=== PATIENT | female | born 1990 | race African-American/Black ===

== ENCOUNTER 2016-09-11 04:06 | Emergency (ER) | payer OTHER ==
[~2016-09-11] VITALS: Ht 170.2 cm; Wt 96.9 kg
[~2016-09-11 04:06] MED LIST: ALKA-SELTZER P1 EAC7 PO; AZITHROMYCIN500 M1; BENADRYL50 MG PO; BENTYL10 MG PO; CENTANY30 GM TP; CIPRODEX OTIC7.5 ML RIGHT EAR; CIPROFLOXACIN500 M1; CYMBALTA60 MG PO; ENDOCET 5-3251 EACH PO; FIORICET WI1 CAPSULE PO; FLUCONAZOLE100 MG; IBUPROFEN800 MG PO; MACROBID100 MG PO; METRONIDAZOLE500 MG; MOTRIN800 MG PO; MUCUS ER600 MG PO; NAPROSYN500 MG PO; NAPROXEN500 MG PO; NO HOME MEDS; NOHOMEMEDS; NORCO 5/3251 TABLET PO; PERCOCET 5/31 TABLET PO; PHENERGAN25 MG PR; ROBITUSSIN AC,T10 ML PO; SERTRALINE HCL50 MG PO; SUDAFED 12-HOU120 MG PO; TESSALON PERLE100 MG PO; THERAFLU COLD-1 EAC1 PO; TOPAMAX100 MG PO; TRAMADOL HCL50 MG PO; TYLENOL EXTRA500 MG PO; TYLENOL REGULA325 MG PO; TYLENOL WITH C1 EACH PO; VALTREX1000 MG PO; ZOFRAN ODT4 MG PO; ZOFRAN4 MG PO; ZOFRAN8 MG PO; [UNRECOGNIZED DRUG - OTHER] PO
[2016-09-11 05:37] VITALS: BP 115/85
== END 2016-09-11 05:38 | disposition home or self-care (01) ==
LOC: EME 04:06
DX: R51 Headache (principal); M54.2 Cervicalgia; R68.84 Jaw pain; H92.09 Otalgia, unspecified ear; Y04.8XXA Assault by other bodily force, initial encounter; Y07.03 Male partner, perpetrator of maltreatment and neglect; Y92.009 Unspecified place in unspecified non-institutional (private) residence as the place of occurrence of the external cause
CPT/HCPCS: 70450; 70486; 72125; 90839; 99281; 99284

== ENCOUNTER 2016-12-19 08:25 | Emergency (ER) | payer OTHER ==
[~2016-12-19] VITALS: Ht 170.2 cm; Wt 97.8 kg
[2016-12-19] MEDS ORDERED: NAPROSYN500 MG PO (09:34)
[2016-12-19] MEDS ORDERED: ULTRAM50 MG PO (09:34)
[2016-12-19 10:14] VITALS: BP 118/81
== END 2016-12-19 10:15 | disposition home or self-care (01) ==
LOC: EME 08:25
DX: S80.02XA Contusion of left knee, initial encounter (principal); W22.8XXA Striking against or struck by other objects, initial encounter
CPT/HCPCS: 73564; 99281; 99283

== ENCOUNTER 2017-01-12 11:13 | Emergency (ER) | payer OTHER ==
[~2017-01-12] VITALS: Ht 170.2 cm; Wt 99.2 kg
[~2017-01-12 11:13] MED LIST changes: +ULTRAM50 MG PO
[2017-01-12 13:06] LABS: HEMATOCRIT 39.8 % (36.0-46.0); MCHC 31.4 G/DL (30.0-36.0); MCV 89.2 FL (83-99); MEAN PLAT.VOLUME 8.8 uM^3 (9.5-12.4); PLATELET COUNT 268 K/uL (156-360); RBC DIS.WIDTH-SD 42.3 % (39-53); RED BLOOD COUNT 4.46 M/uL (3.80-5.20); WHITE BLOOD COUNT 7.2 K/uL (4.1-10.2)
[2017-01-12 13:21] LABS: CHLORIDE 106 mEq/L (99-109); POTASSIUM 3.9 mEq/L (3.7-5.4); SODIUM 138 mEq/L (136-147)
[2017-01-12 13:24] LABS: GLUCOSE 85 mg/dL (70-99)
[2017-01-12 13:25] LABS: ANION GAP 7 MEQ/L (2-14)
[2017-01-12 13:26] LABS: TOTAL BILIRUBIN 0.6 mg/dL (0.0-1.0)
[2017-01-12 13:27] LABS: ALKALINE PHOSPHATASE 32 IU/L (3-129)
[2017-01-12 13:28] LABS: GFR ESTIMATE (CALCULATED) > 59 mL/min/
[2017-01-12 13:29] LABS: UREA NITROGEN (BUN) 14 mg/dL (9-23)
[2017-01-12 13:39] LABS: QUANTITATIVE HCG < 4.0 MIU/ML
[2017-01-12 14:06] LABS: ADD MIUA? YES; BILIRUBIN NEGATIVE; BLOOD LARGE; COLOR YELLOW ((YELLOW)); GLUCOSE (STRIP) NEGATIVE; KETONES NEGATIVE; LEUKOCYTES LARGE; NITRITE NEGATIVE; PROTEIN (STRIP) NEGATIVE; SPECIFIC GRAVITY 1.016 (1.000-1.030); UROBILINOGEN 0.2 MG/DL (0.2-1.0)
[2017-01-12 14:17] LABS: BACTERIA RARE /HPF; EPITHELIAL CELLS 2+ /HPF; MUCUS TRACE /LPF; UCUL ADDED? NO
[2017-01-12 15:38] VITALS: BP 138/74
== END 2017-01-12 15:41 | disposition home or self-care (01) ==
LOC: EME 11:13
DX: G89.18 Other acute postprocedural pain (principal); R10.9 Unspecified abdominal pain; K59.00 Constipation, unspecified
CPT/HCPCS: 74177; 80053; 81003; 83605; 84702; 85027; 99281; 99285; J1885; J2405; J3010; J7030

== ENCOUNTER 2017-08-15 22:00 | Emergency (ER) | payer OTHER ==
[~2017-08-15] VITALS: Ht 170.2 cm; Wt 97.6 kg
[2017-08-15 22:08] VITALS: BP 114/86
[2017-08-16] MEDS ORDERED: GUAIFENESIN600 M1 PO (11:51)
[2017-08-16] MEDS ORDERED: ZITHROMAX Z-PA250 MG PO (11:51)
[2017-08-16] MEDS ORDERED: CROMOLYN SODIUM26 ML BOTH NARES (11:51)
== END 2017-08-15 23:30 | disposition left against medical advice (07) ==
LOC: EME 22:00
DX: G43.909 Migraine, unspecified, not intractable, without status migrainosus (principal); H57.10 Ocular pain, unspecified eye; Z53.21 Procedure and treatment not carried out due to patient leaving prior to being seen by health care provider

== ENCOUNTER 2017-08-16 09:33 | Emergency (ER) | payer OTHER ==
[~2017-08-16] VITALS: Ht 170.2 cm; Wt 95.7 kg
[2017-08-16] MEDS ORDERED: GUAIFENESIN600 M1 PO (11:51)
[2017-08-16] MEDS ORDERED: ZITHROMAX Z-PA250 MG PO (11:51)
[2017-08-16] MEDS ORDERED: CROMOLYN SODIUM26 ML BOTH NARES (11:51)
[2017-08-16 12:23] VITALS: BP 109/70
== END 2017-08-16 12:25 | disposition home or self-care (01) ==
LOC: EME 09:33
DX: O99.512 Diseases of the respiratory system complicating pregnancy, second trimester (principal); J01.90 Acute sinusitis, unspecified; O26.892 Other specified pregnancy related conditions, second trimester; H92.02 Otalgia, left ear; Z3A.18 18 weeks gestation of pregnancy; O99.342 Other mental disorders complicating pregnancy, second trimester; F32.9 Major depressive disorder, single episode, unspecified

== ENCOUNTER 2017-10-21 09:33 | Outpatient (CLI) | payer OTHER ==
[~2017-10-21] VITALS: Ht 170.2 cm; Wt 93.4 kg
[~2017-10-21 09:33] MED LIST changes: +CROMOLYN SODIUM26 ML BOTH NARES; +GUAIFENESIN600 M1 PO; +ZITHROMAX Z-PA250 MG PO
[2017-10-21 09:56] VITALS: BP 102/66
[2017-10-21 10:32] LABS: BASOPHIL (%) 0.3 % (0-1); EOSINOPHIL COUNT 0.2 K/uL (0-0.3); HEMATOCRIT 31.9 % (36.0-46.0); HEMOGLOBIN 10.4 G/DL (11.9-15.5); IMMATURE GRANULOCYTE (%) 0.5 % (0.0-0.7); LYMPHOCYTE (%) 27.2 % (15-42); LYMPHOCYTE COUNT 1.6 K/uL (1.0-2.8); MCH 28.9 PG (29.0-34.0); MCHC 32.6 G/DL (30.0-36.0); MCV 88.6 FL (83-99); MONOCYTE COUNT 0.5 K/uL (0-0.8); NEUTROPHIL COUNT 3.5 K/uL (1.8-6.4); PLATELET COUNT 243 K/uL (156-360); RBC DIS.WIDTH-CV 12.7 % (11.8-14.6); RBC DIS.WIDTH-SD 41.6 % (39-53); WHITE BLOOD COUNT 5.7 K/uL (4.1-10.2)
== END 2017-10-21 12:30 | disposition home or self-care (01) ==
LOC: LDRP-OP 09:33 → 2WEST 09:34
PROVIDERS: Nurse Practitioner
DX: O36.8120 Decreased fetal movements, second trimester, not applicable or unspecified (principal); O9A.212 Injury, poisoning and certain other consequences of external causes complicating pregnancy, second trimester; S01.512A Laceration without foreign body of oral cavity, initial encounter; M54.9 Dorsalgia, unspecified; O99.342 Other mental disorders complicating pregnancy, second trimester; F32.9 Major depressive disorder, single episode, unspecified; Y04.2XXA Assault by strike against or bumped into by another person, initial encounter; W10.9XXA Fall (on) (from) unspecified stairs and steps, initial encounter; Z3A.26 26 weeks gestation of pregnancy
CPT/HCPCS: 59025; 76805; 85025; 85460; G0378

== ENCOUNTER 2017-12-25 00:28 | Inpatient (IN) | payer OTHER ==
[~2017-12-25] VITALS: Ht 170.2 cm; Wt 91.6 kg
[2017-12-25] VITALS (7 sets, daily range): BP systolic 99–115; BP diastolic 57–76
[2017-12-25] MEDS ORDERED: IBUPROFEN800 MG PO (01:40)
[2017-12-25] MEDS ORDERED: ENDOCET 5-3251 EACH PO (01:40)
[2017-12-25 01:43] LABS: BASOPHIL (%) 0.3 % (0-1); EOSINOPHIL COUNT 0.1 K/uL (0-0.3); HEMATOCRIT 29.6 % (36.0-46.0); HEMOGLOBIN 9.8 G/DL (11.9-15.5); IMMATURE GRANULOCYTE (%) 0.7 % (0.0-0.7); LYMPHOCYTE (%) 30.7 % (15-42); LYMPHOCYTE COUNT 2.3 K/uL (1.0-2.8); MCH 28.5 PG (29.0-34.0); MCHC 33.1 G/DL (30.0-36.0); MONOCYTE (%) 8.2 % (3-12); MONOCYTE COUNT 0.6 K/uL (0-0.8); NEUTROPHIL (%) 59.1 % (45-76); NEUTROPHIL COUNT 4.4 K/uL (1.8-6.4); PLATELET COUNT 207 K/uL (156-360); RBC DIS.WIDTH-CV 12.4 % (11.8-14.6); RBC DIS.WIDTH-SD 38.5 % (39-53); RED BLOOD COUNT 3.44 M/uL (3.80-5.20); WHITE BLOOD COUNT 7.4 K/uL (4.1-10.2)
[2017-12-25 01:46] LABS: AMPHETAMINE NEGATIVE (500 ng/mL); BARBITURATES NEGATIVE (200 ng/mL); BENZODIAZEPINES NEGATIVE (150 ng/mL); BUPRENORPHINE NEGATIVE (10 ng/mL); COCAINE NEGATIVE (150 ng/mL); METHADONE NEGATIVE (200 ng/mL); METHAMPHETAMINE NEGATIVE (500 ng/mL); OPIATES (MORPHINE) NEGATIVE (100 ng/mL); OXYCODONE NEGATIVE (100 ng/mL); PHENCYCLIDINE NEGATIVE (25 ng/mL); PROPOXYPHENE NEGATIVE (300 ng/mL); THC CANNABINOIDS NEGATIVE (50 ng/mL); TRICYCLIC ANTIDEPRESSANTS NEGATIVE (300 ng/mL)
[2017-12-26 03:05] VITALS: BP 93/53
[2017-12-26 06:56] LABS: BASOPHIL (%) 0.3 % (0-1); EOSINOPHIL (%) 1.2 % (0-5); EOSINOPHIL COUNT 0.1 K/uL (0-0.3); HEMATOCRIT 23.6 % (36.0-46.0); IMMATURE GRANULOCYTE (%) 0.5 % (0.0-0.7); LYMPHOCYTE (%) 29.4 % (15-42); LYMPHOCYTE COUNT 2.6 K/uL (1.0-2.8); MCH 28.1 PG (29.0-34.0); MCHC 32.6 G/DL (30.0-36.0); MCV 86.1 FL (83-99); MONOCYTE (%) 9.3 % (3-12); MONOCYTE COUNT 0.8 K/uL (0-0.8); NEUTROPHIL (%) 59.3 % (45-76); NEUTROPHIL COUNT 5.3 K/uL (1.8-6.4); PLATELET COUNT 190 K/uL (156-360); RBC DIS.WIDTH-CV 12.5 % (11.8-14.6); RBC DIS.WIDTH-SD 39.5 % (39-53); WHITE BLOOD COUNT 8.9 K/uL (4.1-10.2)
[2017-12-26 07:01] LABS: HEMOGLOBIN 7.7 G/DL (11.9-15.5); RED BLOOD COUNT 2.74 M/uL (3.80-5.20)
[2017-12-26 07:12] VITALS: BP 116/78
== END 2017-12-26 10:50 | disposition home or self-care (01) | DRG 765 ==
LOC: LDRP-OP 00:28 → 2WEST 00:29 → LDRP-OP 02-24 11:22
PROVIDERS: Nurse Practitioner; Obstetrics & Gynecology Gynecology
PROC: 0UB70ZZ Excision of Bilateral Fallopian Tubes, Open Approach (ICD-10-PCS; principal; 2017-12-25)
PROC: 10D00Z1 Extraction of Products of Conception, Low, Open Approach (ICD-10-PCS; principal; 2017-12-25)
DX: O34.29 Maternal care due to uterine scar from other previous surgery (principal); O60.14X0 Preterm labor third trimester with preterm delivery third trimester, not applicable or unspecified; Z30.2 Encounter for sterilization; O99.824 Streptococcus B carrier state complicating childbirth; O99.344 Other mental disorders complicating childbirth; F41.9 Anxiety disorder, unspecified; F32.9 Major depressive disorder, single episode, unspecified; O99.354 Diseases of the nervous system complicating childbirth; G43.909 Migraine, unspecified, not intractable, without status migrainosus; O99.62 Diseases of the digestive system complicating childbirth; K21.9 Gastro-esophageal reflux disease without esophagitis; Z3A.36 36 weeks gestation of pregnancy; Z37.0 Single live birth
CPT/HCPCS: 85025; 86850; 86900; 86901; 88302; J0690; J1885; J1940; J2274; J7120